=== PATIENT | male | born 1960 | race African-American/Black ===

== ENCOUNTER 2017-06-23 13:16 | Emergency (ER) | payer SELFPAY | END 2017-06-23 14:02 | disposition left against medical advice (07) | LOC: ER 13:16 | DX: S09.90XA Unspecified injury of head, initial encounter (principal); F10.120 Alcohol abuse with intoxication, uncomplicated; Z53.29 Procedure and treatment not carried out because of patient's decision for other reasons; E11.9 Type 2 diabetes mellitus without complications; W19.XXXA Unspecified fall, initial encounter; Y93.89 Activity, other specified; Y99.8 Other external cause status; Y92.89 Other specified places as the place of occurrence of the external cause ==